=== PATIENT | female | born 1960 | race American Indian/Alaskan Native ===

== ENCOUNTER 2016-08-06 10:18 | Emergency (ER) | payer BC ==
[2016-08-06 10:38] VITALS: BMI 41.8
[2016-08-06 10:42] VITALS: TEMP 98.6
--- NOTE | 2016-08-06 10:58 | ED PDOC ---
Arrival/HPI - General Chief Complaint: Lower Extremity Problem/Injury Time Seen by Provider: 08/06/16 10:54 Historian: Patient - History of Present Illness Narrative History of Present Illness (Text): 08/06/16 10:55 56 y/o female, pmh including htn/hyperlipidemia, nkda, c/o rt. posterior calf pain x 2 days with no fall or trauma. Aching pain, aggravated by walking, no numbness or tingling, no dizziness, no redness, has pain meds at home including NSAID, no other medical or psychological complaints. Past Medical History - Provider Review Nursing Documentation Reviewed: Yes - Cardiac Hx Cardiac Disorders: Yes Hx Hypertension: Yes - Pulmonary Hx Respiratory Disorders: No - Neurological Hx Neurological Disorder: No - HEENT Hx HEENT Disorder: No Hx Blind: No - Renal Hx Renal Disorder: No - Endocrine/Metabolic Hx Endocrine Disorders: No - Hematological/Oncological Hx Blood Disorders: No - Integumentary Hx Dermatological Disorder: No - Musculoskeletal/Rheumatological Hx Musculoskeletal Disorders: No - Gastrointestinal Hx Gastrointestinal Disorders: No - Genitourinary/Gynecological Hx Genitourinary Disorders: No - Psychiatric Hx Psychophysiologic Disorder: No Hx Substance Use: No - Surgical History Hx Tubal Ligation: Yes Other/Comment: uterine fibroid removed Family/Social History - Physician Review Nursing Documentation Reviewed: Yes Family/Social History: Unknown Family HX Smoking Status: Never Smoked Hx Alcohol Use: No Hx Substance Use: No Allergies/Home Meds Allergies/Adverse Reactions: Allergies No Known Allergies Allergy (Verified 08/06/16 10:38) Home Medications: Home Meds Medication Instructions Recorded Confirmed RX: Aspirin [Aspirin Chewable] 81 mg PO DAILY 08/06/16 08/06/16 RX: Labetalol [Trandate] 200 mg PO BID 08/06/16 08/06/16 RX: amLODIPine [Norvasc] 10 mg PO DAILY 08/06/16 08/06/16 RX: cloNIDine [Catapres (RENAL)] 0.1 mg PO BID 08/06/16 08/06/16 Rosuvastatin Calcium [Crestor] 10 mg PO HS 08/06/16 08/06/16 Review of Systems - Review of Systems Constitutional: absent: Fatigue, Fevers Eyes: absent: Vision Changes Respiratory: absent: Cough, Sputum Cardiovascular: absent: Chest Pain Gastrointestinal: absent: Abdominal Pain, Nausea, Vomiting Musculoskeletal: Myalgias. absent: Back Pain, Neck Pain, Joint Swelling Neurological: absent: Headache, Dizziness, Focal Weakness, Gait Changes, Speech Changes, Facial Droop, Disequilibrium, Seizure Physical Exam Vital Signs Reviewed: Yes Vital Signs Temp Pulse Resp BP Pulse Ox 08/06/16 12:00 67 18 148/89 98 08/06/16 11:30 65 18 156/94 H 98 08/06/16 10:38 98.6 F 64 16 159/100 H 97 Temperature: Afebrile Blood Pressure: Hypertensive Pulse: Regular Respiratory Rate: Normal Appearance: Positive for: Well-Appearing, Non-Toxic, Comfortable Pain Distress: Mild Mental Status: Positive for: Alert and Oriented X 3 - Systems Exam Head: Present: Atraumatic, Normocephalic Pupils: Present: PERRL Extroacular Muscles: Present: EOMI Conjunctiva: Present: Normal Mouth: Present: Moist Mucous Membranes Neck: Present: Normal Range of Motion Respiratory/Chest: Present: Clear to Auscultation, Good Air Exchange. No: Respiratory Distress, Accessory Muscle Use Cardiovascular: Present: Regular Rate and Rhythm, Normal S1, S2. No: Murmurs Abdomen: Present: Normal Bowel Sounds. No: Tenderness, Distention, Peritoneal Signs Back: Present: Normal Inspection Upper Extremity: Present: Normal Inspection. No: Cyanosis, Edema Lower Extremity: Present: Normal Inspection, Other (RLE: +ttp on the rt. calf region, no swelling, no joint tenderness, no erythematous, +DPPT pulses, capillary refill< 2 seconds, neurovascular intact. ). No: Edema Neurological: Present: GCS=15, CN II-XII Intact, Speech Normal Skin: Present: Warm, Dry, Normal Color. No: Rashes Psychiatric: Present: Alert, Oriented x 3, Normal Insight, Normal Concentration Medical Decision Making ED Course and Treatment: 08/06/16 10:59 -RLE venuous doppler -pt. refused pain med 08/06/16 12:28 -RLE Venuous Doppler: as per preliminary , there is no acute DVT -Pt. request pain med, toradol IM ordered, advised crutches but she refused therefore I order cane. -Discharge home with indomethacin, flexeril, heat compression, avoid excessive walking or standing, follow up with your own pmd and orthopedic within 2 days for possible MRI of the rt. knee if pain doesn't improved within 7 days, return to the ER for any new or worsening signs or symptoms. - RAD Interpretation Radiology Orders: 08/06/16 10:54 DUPLEX LOWER EXTRM VEIN RIGHT [US] Stat RLE Venuous Doppler: as per preliminary , there is no acute DVT Afterschool: Radiologist - PA / SHEEP KILLER / Resident Statement MD/DO has reviewed & agrees with the documentation as recorded. Disposition/Present on Arrival - Present on Arrival Any Indicators Present on Arrival: No History of DVT/PE: No History of Uncontrolled Diabetes: No Urinary Catheter: No History of Decub. Ulcer: No History Surgical Site Infection Following: None - Disposition Have Diagnosis and Disposition been Completed?: Yes Diagnosis: Knee pain, acute, Bursitis Disposition: HOME/ ROUTINE Disposition Time: 12:31 Patient Plan: Discharge Condition: GOOD Discharge Instructions (ExitCare): Knee Bursitis (ED) Print Language: SOUTH [place]UD[place]ESE Additional Instructions: Discharge home with indomethacin, flexeril, heat compression, avoid excessive walking or standing, follow up with your own pmd and orthopedic within 2 days for possible MRI of the rt. knee if pain doesn't improved within 7 days, return to the ER for any new or worsening signs or symptoms. Prescriptions: Cyclobenzaprine [Cyclobenzaprine HCl] 10 mg PO TID #21 tab RX: Indomethacin [Indocin] 50 mg PO TID PRN #21 cap PRN Reason: Other Referrals: Bakari Kelly MD, PhD [Primary Care Provider] - Follow up with primary Tono Macario III, MD [Medical Doctor] - Follow up with primary Forms: WORK NOTE
[2016-08-06 11:38] VITALS: RESP 18; O2SAT 98
[2016-08-06 12:23] VITALS: BP 148/89; PULSE 67
--- NOTE | 2016-08-06 12:53 | US ---
PROCEDURE: Right lower extremity venous US HISTORY: Leg pain and swelling. Evaluate for DVT. PHYSICIAN(S): Guillermo Santana M.D. TECHNIQUE: Duplex sonography and color-flow Doppler with graded compression were used to evaluate the deep venous system of the right lower extremity. FINDINGS: The visualized deep venous system of the right lower extremity is sonographically normal and compressible. Normal waveforms and augmentation are seen. There is no sonographic evidence for deep venous thrombosis in the visualized segments of the right lower extremity. IMPRESSION: 1. No sonographic evidence for deep venous thrombosis in the visualized segments of the right lower extremity.
== END 2016-08-06 13:00 | disposition home or self-care (01) ==
LOC: ED 10:18
DX: M70.51 Other bursitis of knee, right knee (principal); M25.561 Pain in right knee; I10 Essential (primary) hypertension; E78.5 Hyperlipidemia, unspecified
CPT/HCPCS: 93971; 96372; 99284; J1885